=== PATIENT | female | born 1995 | race Caucasian/White ===

== ENCOUNTER 2021-04-04 16:19 | Emergency (ER) | payer BC ==
[~2021-04-04] VITALS: Ht 167.6 cm; Wt 66.8 kg
[2021-04-04 16:25] VITALS: BP 132/76
== END 2021-04-04 17:16 | disposition left against medical advice (07) ==
LOC: ER 16:20
DX: R06.02 Shortness of breath (principal); R11.0 Nausea
CPT/HCPCS: 71045; 99283